=== PATIENT | male | born 1940 | race Hispanic/Latino ===

== ENCOUNTER 2018-10-17 09:39 | Day surgery (SDC) | payer MEDICARE, OTHER ==
[2018-10-17] MEDS ORDERED: NACL 0.9% 1000 ML 1,000 ML IV SCH (11:00)
[2018-10-17] MEDS ORDERED: WATER FOR IRRIG STERILE IR ONE (11:35)
[2018-10-17 12:16] LABS: Basophils # (Auto) 0.1 K/mm3 (0.0-0.1); Basophils % (Auto) 1.4 % (0.0-1.8); Eosinophils # (Auto) 0.3 K/mm3 (0.0-0.4); Eosinophils % (Auto) 4.1 % (0.0-4.3); Hematocrit 41.9 % (35.5-45.6); Hemoglobin 13.8 gm/dl (11.8-15.2); Lymphocytes # (Auto) 1.5 K/mm3 (1.2-5.4); Lymphocytes % (Auto) 24.3 % (13.4-35.0); Mean Corpuscular HGB Conc 33 % (32-34); Mean Corpuscular Volume 97 fl (84-94); Monocytes # (Auto) 0.6 K/mm3 (0.0-0.8); Monocytes % (Auto) 8.8 % (0.0-7.3); Platelet Count 216 K/mm3 (140-440); Red Blood Count 4.35 M/mm3 (3.65-5.03); Red Cell Distribution Width 15.1 % (13.2-15.2)
[2018-10-17 12:20] LABS: Alanine Aminotransferase 11 units/L (7-56); Albumin 3.4 g/dL (3.9-5)
--- NOTE | 2018-10-17 12:23 | History and Physical Report ---
HISTORY OF PRESENT ILLNESS: An 78-year-old white male with an underlying history of coronary artery disease, which is stable at present. He has been having some epigastric and some right upper quadrant pain. HEENT exam shows no JVD. Lungs are clear to auscultation. On exam, right upper quadrant pain that has been persisting for a few days. He is being assessed for possible peptic ulcer disease. ALLERGIES: He has a history of allergies to NIACIN and LEVAQUIN. SOCIAL HISTORY: No smoking history, no alcohol history in the recent past, has had his flu shots and has cardiac stents, but his cardiac situation is stable at present. PHYSICAL EXAMINATION: GENERAL: He is afebrile. VITAL SIGNS: Blood pressure is 160/76, pulse is 65, height is 5 feet 11 inches, weight is 206. HEENT: Shows no JVD. LUNGS: Show reduced breath sounds. CARDIOVASCULAR: Normal. ABDOMEN: Soft. Bowel sounds present. NEUROLOGICAL: The patient is alert and oriented. ASSESSMENT: Upper abdominal pain, peptic ulcer disease, coronary artery disease. PLAN: To do an EGD at [facility] on 10/17/2018, also to check labs, CBC and liver function tests. JOB# [id number] THOMPSON/HSOAIB
[2018-10-17 12:28] LABS: Bilirubin,Direct < 0.2 mg/dL (0-0.2)
[2018-10-17] MEDS ORDERED: BENADRYL ONE (13:19)
[2018-10-17] MEDS ORDERED: VERSED IV ONE (13:19)
[2018-10-17] MEDS ORDERED: SUBLIMAZE ONE (13:20)
[2018-10-17] MEDS ORDERED: DIPRIVAN 10 MG/ML IV ONE ×2 (13:21→13:22)
[2018-10-17] MEDS ORDERED: AMIDATE IV ONE (13:22)
[2018-10-17] MEDS ORDERED: XYLOCAINE 1% 20 mL ONE (13:23)
--- NOTE | 2018-10-17 13:42 | Procedure Note ---
Date of procedure: 10/17/18 Pre-op diagnosis: Epigastric Pain Post-op diagnosis: other (Multiple Fundic Poyps/ Gastritis/ Mild to Moedrate Distal Erosive Esophagitis/ Patent Pylorus and No Peptic Ulcer disease noted) Procedure: EGD with Biopsy Anesthesia: MAC Surgeon: RON DOWNEY Estimated blood loss: minimal Pathology: list Specimen disposition: to lab Condition: stable Disposition: same day (Treat with PPI. Avoid aspirin and NSAI for 5 days. Check labs and follow up in 1 to 2 weeks ([phone]).)
[2018-10-17 14:38] VITALS: BP 111/61
--- NOTE | 2018-10-17 14:53 | Operative Report ---
PROCEDURE: EGD with biopsy. INDICATIONS: This is an 78-year-old white male with an underlying history of coronary artery disease who has been having some epigastric and right upper quadrant pain. EGD was done to make sure there was not any significant upper GI pathology. DESCRIPTION OF PROCEDURE: Procedure was done after getting informed consent with MAC anesthesia. Instrument was passed through the hypopharynx into the esophagus, which showed some mild distal esophagitis. Stomach showed multiple gastric polyps, possibly fundic polyps in the proximal stomach. Photo documentation and biopsies were obtained. Stomach showed antral gastritis with a patent pylorus. No ulcers were seen in the straight or the retroverted view of the duodenum, the first and the second portion appeared normal. Biopsy was done from the gastric antrum as well as the angularis incisura to rule out for H. pylori. There was minimal bleeding from the biopsy sites. No complications associated with the procedure. IMPRESSION: Epigastric pain. No peptic ulcer disease noted. Gastritis. Patent pylorus. Multiple gastric polyps, possibly fundic polyps in the proximal stomach. Mild to moderate distal erosive esophagitis. There was minimal bleeding from the biopsy site. No complications associated with the procedure. Plan is to treat the patient with PPI. Check labs, namely CBC, liver function tests and gastrin level, have the patient avoid aspirin and aspirin-related products for the next few days. Treat the patient with omeprazole. We will have the patient follow up in the office in 1-2 weeks' time. CLAUDIA Lopes was in the room throughout the entirety of the proceedure. JOB# [id number] THOMPSON/SHOAIB MENENDEZ
--- NOTE | 2018-10-17 14:55 | Anesthesia Day of Surgery ---
Anesthesia Day of Surgery - Day of Surgery Patient Examined: Yes Patient H&P Reviewed: Yes Patient is NPO: Yes
--- NOTE | 2018-10-17 14:56 | Post Anesthesia Evaluation ---
- Post Anesthesia Evaluation Patient Participated: Yes Airway Patent: Yes Stable Respiratory Function: Yes Nausea/Vomiting: No Temp > 96.8F: Yes Pain Manageable: Yes Adequeate Hydration: No Anesthesia Complications: Yes
--- NOTE | 2018-10-17 14:56 | Anesthesia Consultation ---
Anesthesia Consult and Med Hx Date of service: 10/17/18 - Airway Anesthetic Teeth Evaluation: Poor ROM Head & Neck: Adequate Mental/Hyoid Distance: Adequate Mallampati Class: Class III Intubation Access Assessment: Possibly Difficult - Pulmonary Exam CTA: Yes - Cardiac Exam Cardiac Exam: RRR - Pre-Operative Health Status ASA Pre-Surgery Classification: ASA3 Proposed Anesthetic Plan: MAC (Murmur, possible aortic stenosis will maintain BP and HR, HTN) - Pulmonary Hx Smoking: Yes - Cardiovascular System Hx Hypertension: Yes Hx Coronary Artery Disease: Yes Hx Heart Murmur: Yes - Endocrine Hx Hypothyroidism: Yes - Other Systems Hx Cancer: Yes (SKIN)
== END 2018-10-17 09:40 | disposition home or self-care (01) ==
LOC: GIO 09:39
DX: K29.40 Chronic atrophic gastritis without bleeding (principal); K29.00 Acute gastritis without bleeding; K22.10 Ulcer of esophagus without bleeding; K31.7 Polyp of stomach and duodenum; K21.0 Gastro-esophageal reflux disease with esophagitis; I25.10 Atherosclerotic heart disease of native coronary artery without angina pectoris; I10 Essential (primary) hypertension; E78.00 Pure hypercholesterolemia, unspecified; E03.9 Hypothyroidism, unspecified; M19.90 Unspecified osteoarthritis, unspecified site; Z79.899 Other long term (current) drug therapy; Z88.1 Allergy status to other antibiotic agents; Z95.5 Presence of coronary angioplasty implant and graft; Z96.653 Presence of artificial knee joint, bilateral; Z85.828 Personal history of other malignant neoplasm of skin; Z98.890 Other specified postprocedural states
CPT/HCPCS: 36415; 43239; 80076; 82941; 85025; 88305; 88342; J2704; J3010; J7030; J1200; J2250